=== PATIENT | male | born 1990 | race American Indian/Alaskan Native ===

== ENCOUNTER 2019-02-16 12:40 | Emergency (ER) | payer SELFPAY ==
[2019-02-16 13:04] VITALS: PULSE 60; TEMP 98.7
--- NOTE | 2019-02-16 13:12 | C.PDOC ---
Time Seen by Provider: 02/16/19 13:08 Chief Complaint (Nursing): Male Genitourinary Past Medical History Vital Signs: Last Vital Signs Temp 98.7 F 02/16/19 12:59 Pulse 60 02/16/19 12:59 Resp 20 02/16/19 12:59 BP 128/69 02/16/19 12:59 Pulse Ox 97 02/16/19 12:59 - Social History Hx Alcohol Use: Yes Hx Substance Use: Yes - Immunization History Hx Influenza Vaccination: No ED Course And Treatment O2 Sat by Pulse Oximetry: 97 Disposition - Disposition
[2019-02-16] MEDS ORDERED: cefTRIAXone (Rocephin) 250 mg Inj IM STA (13:20)
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
[2019-02-16 14:20] VITALS: BP 120/70; RESP 8
[2019-02-16 14:36] VITALS: O2SAT 97
== END 2019-02-16 14:20 | disposition home or self-care (01) ==
LOC: C.ER 12:40
DX: Z20.2 Contact with and (suspected) exposure to infections with a predominantly sexual mode of transmission (principal)
CPT/HCPCS: 87491; 87591; 96372; 99284; J0696